=== PATIENT | male | born 1945 | race African-American/Black ===

== ENCOUNTER 2017-03-01 02:05 | Inpatient (IN) | payer MEDICARE ==
[2017-03-01] MEDS ORDERED: Nitroglycerin 2% Ointment 1 INCH/1 GM Packet ONE (02:55)
[2017-03-01] MEDS ORDERED: Nitroglycerin 0.4 MG TAB (25 Tab Bottle) ONE (02:55)
[2017-03-01 03:01] LABS: ALT (SGPT) 10 U/L (8-55); AST (SGOT) 12 U/L (5-34); Alkaline Phosphatase 74 U/L (40-150); Anion Gap 9 mmol/L (10-20); BUN (Urea Nitrogen) 8 mg/dL (8.4-25.7); Bilirubin, Total 0.6 mg/dL (0.2-1.2); CK (CPK) 63 U/L (30-200); Calc. Creatinine Clearance 0 mL/min (70-130); Calcium 9.6 mg/dL (7.8-10.44); Carbon Dioxide 28 mmol/L (23-31); Chloride 104 mmol/L (98-107); Estimated GFR-MDRD 89; Globulin 3.5 g/dL (2.4-3.5); Lipase 11 U/L (8-78); Protein, Total 7.9 g/dL (5.8-8.1)
[2017-03-01 03:03] LABS: Troponin I Less than 0.010 ng/mL (< 0.028)
[2017-03-01 03:09] LABS: #Basophils 0.1 thou/uL (0.0-0.2); #Eosinphils 0.2 thou/uL (0.0-0.7); #Lymphocytes 1.9 thou/uL (1.20-3.40); #Monocytes 0.6 thou/uL (0.11-0.59); #Neutrophils 3.8 thou/uL (1.40-6.50); %Basophils 1.4 % (0.0-1.0); %Eosinophils 2.8 % (0.0-10.0); %Lymphocytes 28.8 % (21.0-51.0); %Monocytes 9.5 % (0.0-10.0); Hematocrit 48.5 % (42.0-52.0); Mean Platelet Volume 7.5 fL (7.4-10.4); Red Blood Cell (RBC) Count 5.15 mill/uL (4.70-6.10); White Blood Cell (WBC) Count 6.5 thou/uL (4.8-10.8)
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
[2017-03-01] MEDS ORDERED: Ondansetron ODT 4 MG TAB PO PRN (06:52)
[2017-03-01] MEDS ORDERED: Nitroglycerin 0.4 MG TAB (25 Tab Bottle) PO PRN (06:52)
[2017-03-01] MEDS ORDERED: Guaifenesin DM 100-10/5 ML UDCUP PO PRN (06:52)
[2017-03-01] MEDS ORDERED: Acetaminophen 325 MG TAB PO PRN (06:52)
[2017-03-01 06:56] LABS: Troponin I Less than 0.010 ng/mL (< 0.028)
[2017-03-01 07:05] VITALS: BMI 27.5
--- NOTE | 2017-03-01 08:17 | CT ---
PRELIMINARY REPORT/[facility]/EMERGENCY AFTER HOURS PROCEDURE: EXAM: CT Angiography Chest With Intravenous Contrast CLINICAL HISTORY: 71 years old, male; Pain; Chest pain; Type not specified; Patient HX: R/O pe TECHNIQUE: Axial computed tomographic angiography images of the chest with intravenous contrast using pulmonary embolism protocol. CONTRAST: 100 mL of ISOVUE administered intravenously. COMPARISON: No relevant prior studies available. FINDINGS: No definite filling defect to suggest the diagnosis of acute pulmonary embolus. There is less than optimal opacification of the pulmonary arteries. This decreases sensitivity, riky cially in segmental and subsegmental/peripheral vessels. Segmental and subsegmental/peripheral vessels are less than optimally evaluated/visualized in this p atient. No evidence of thoracic aortic dissection or focal aneurysm. Mild to moderate thoracic aortic tortuosity and ectasia. Small amount of coronary artery calcification visible in the LAD. Small amount of pericardial fluid, significance uncertain. No significant hilar or mediastinal lymphadenopathy. No evidence for pneumomediastinum or pneumothorax. Right lung: Small calcified granuloma in the anterior/medial right middle lobe. No other significant parenchymal opacity or mass. No pleural fluid. Left lung: No significant parenchymal opacity or mass. No pleural fluid. Possible small hiatal hernia. Images that include the upper abdomen otherwise appear essentially unremarkable for age. IMPRESSION: No definite evidence of acute pulmonary embolus, see above. No evidence of thoracic aortic dissection or focal aneurysm. Small amount of coronary artery calcification visible in the LAD. Small pericardial effusion. Essentially clear lungs, no pleural fluid. Other details/findings discussed above. Thank you for allowing us to participate in the care of your patient. Dictated and Authenticated by: Anthony Wick MD 03/01/2017 6:01 AM Central Time ([place] \[place]\ [place]) FINAL REPORT EXAM: CT ANGIOGRAM OF THE CHEST: HISTORY: Chest pain x 2 hours. COMPARISON: None. TECHNIQUE: CT angiogram of the chest was performed in the axial plane. Coronal and bilateral oblique 3-dimensi onal reformatted images are submitted for interpretation. FINDINGS: This report is in agreement with the preliminary report by [facility]. No evidence of pulmonary artery emb olism to the level of the segmental arteries. POS: [facility]
--- NOTE | 2017-03-01 08:31 | RAD ---
PORTABLE AP CHEST: Date: 03-01-17 History: Chest pain. Comparison: 03-29-16 FINDINGS: Cardiac silhouette and pulmonary vasculature are within normal limits for portable technique of the study. The lungs are clear. There is mild elevation of the right hemidiaphragm. Degenerative changes are present in the spine. There has been no interval change from prior study. IMPRESSION: No acute cardiopulmonary process. POS: [facility]
[2017-03-01 08:57] LABS: Magnesium 1.9 mg/dL (1.6-2.6); Phosphorus 3.3 mg/dL (2.3-4.7)
[2017-03-01 09:00] LABS: Troponin I Less than 0.010 ng/mL (< 0.028)
[2017-03-01] MEDS ORDERED: Famotidine 20 MG TAB PO SCH (09:00)
[2017-03-01] MEDS ORDERED: ADENOSINE 60 MG/20 ML VIAL ONE (13:21)
[2017-03-01] MEDS ORDERED: ISOVUE-370 76%-LOCM 1 ML ONE (13:26)
[2017-03-01 15:49] VITALS: TEMP 98.2
[2017-03-01 16:07] VITALS: BP 177/82
--- NOTE | 2017-03-01 16:21 | NM ---
EXAM: NUCLEAR MEDICINE CARDIAC STRESS WITH EF AND WALL MOTION 03/01/17 HISTORY: Chest pain. COMPARISON: 11/24/14. TECHNIQUE: Patient administered 9.4 millicuries of technetium 99m Sestamibi for rest imaging and 29.7 millicuri es of technetium 99m Sestamibi for stress imaging. Cardiac gating is performed. FINDINGS: Homogeneous distribution of the radiotracer. No reversibility or fixed defect. TID is 1.09. End diastolic volume is 79 mL. End systolic volume is 18 mL. CARDIAC GATING: Normal motion and thickening. Ejection fraction is 77%. IMPRESSION: 1. Reversibility. No fixed defect. 2. 77% ejection fraction. POS: [facility]
[2017-03-01] MEDS ORDERED: FLU VACC TS2017-18 (>65YR) 0.5 ML SYRINGE IM ONE (21:00)
[2017-03-02] MEDS ORDERED: Lisinopril/Hydrochlorothiazide 10 mg/12.5 mg Tablet PO SCH (09:00)
--- NOTE | 2017-03-02 11:21 | DIS-2 ---
DATE OF ADMISSION: 03/01/2017 DISCHARGE DATE: 03/01/2017 ADMITTING RESIDENT: Cedric Prajapati MD ADMITTING ATTENDING: Alon Mccray M.D. DISCHARGE RESIDENT: Dr. Adrianna Cronin DISCHARGE ATTENDING: Dr. Mccray. CONSULTS: None. PROCEDURES: Stress test which showed 77% ejection fraction. No fixed defect reversibility. Normal motion and thickening. DISCHARGE MEDICATIONS: 1. Lisinopril/hydrochlorothiazide 1 tab orally daily. 2. Atorvastatin 40 mg oral daily. PRIMARY DIAGNOSIS: Atypical chest pain. SECONDARY DIAGNOSES: 1. Hypertension. 2. Hyperlipidemia. HISTORY OF PRESENT ILLNESS/HOSPITAL COURSE: 1. A 71-year-old male who presents to the ED complaining of chest pain and cough. states that he was coughing a lot earlier in the evening and he has been having trouble breathing. The patient said the pain is worse with coughing. He said the pain does not radiate anywhere, he said nothing makes it better. Denies diaphoresis, nausea, vomiting or diarrhea. Denies any recent illness. The patient has a past medical history of hypertension, CAD with an [place], possibly 15 years ago, but his did not know details about that. The patient said he was taking lisinopril/HCTZ in the outpati ent setting. All other review of systems were negative. The patient's vitals were within normal li mits on admission; other than his blood pressure was elevated at 179/87. Patient's exam was relativ mellisa within normal limits. The patient's labs were his CBC normal and his CMP was also normal. The patient's troponins were less than 0.01. His lipase was 11. D-dimer was 20. His EKG showed a norm al sinus rhythm. The patient was admitted for atypical chest pain. His troponins were trended, whi ch were all negative; and as mentioned before, his EKG showed normal sinus rhythm. The patient's D- dimer was elevated and a CT of the chest was ordered which was negative for PE. The patient was mad e n.p.o. and completed a stress test the next morning, which showed a normal ejection fraction and n o signs of coronary artery disease significant enough to cause blockage resulting in chest pain. Ac tually, today the patient was discharged home later that day after receiving the results of the stre ss test. 2. Hypertension: The patient came in hypertensive. His home medications of lisinopril and HCTZ we re continued. The patient was discharged on the same medication. 3. Hyperlipidemia. The patient's ASCVD risk was calculated to be greater than 30%. The patient wa s started on atorvastatin 40 as the patient's liver enzymes were normal. 4. Right mild cognitive decline. The patient a mini mental status exam was completed in the hospit al setting and patient scored a 22/30 which puts him in the mild cognitive decline category. Recomm ended to follow up with his primary care provider for further outpatient workup. DISPOSITION: Stable. LOCATION: Home. ACTIVITY: As tolerated. Diet: Heart healthy. FOLLOW UP. It was recommended that the patient follow up with his primary care physician in outpati ent setting for further workup.
== END 2017-03-01 19:48 | disposition home or self-care (01) | DRG 313 ==
LOC: ERS 02:05 → 2NO 03:00
PROVIDERS: ADMIT Student in an Organized Health Care Education/Training Program; ATTEND Student in an Organized Health Care Education/Training Program
PROC: 4A02XM4 Measurement of Cardiac Total Activity, External Approach (ICD-10-PCS; principal; 2017-03-01)
DX: R07.89 Other chest pain (principal); I25.2 Old myocardial infarction; J20.9 Acute bronchitis, unspecified; R41.81 Age-related cognitive decline; I10 Essential (primary) hypertension; E78.5 Hyperlipidemia, unspecified; N40.0 Benign prostatic hyperplasia without lower urinary tract symptoms
CPT/HCPCS: 36415; 71010; 71275; 78452; 80053; 80061; 82553; 83690; 83735; 84100; 84443; 84484; 85025; 85379; 93005; 93017; 94760; A4216; A9500; G8996-GN-CJ; G8997-GN-CJ; J0153

== ENCOUNTER 2020-08-18 14:48 | Inpatient (IN) | payer MEDICARE, OTHER ==
[2020-08-18 15:59] LABS: #Lymphocytes 2.2 thou/uL (1.20-3.40); #Neutrophils 7.6 thou/uL (1.40-6.50); %Basophils 0.3 % (0.0-1.0); %Eosinophils 0.4 % (0.0-10.0); %Lymphocytes 19.9 % (21.0-51.0); %Monocytes 9.3 % (0.0-10.0); %Neutrophils 70.2 % (42.0-75.0); Hemoglobin 13.7 g/dL (14.0-18.0); Mean Corpuscular Volume 93.5 fL (78.0-98.0); Platelet Count 301 thou/uL (130-400); RBC Distribution Width 12.9 % (11.5-14.5); Red Blood Cell (RBC) Count 4.58 mill/uL (4.70-6.10); White Blood Cell (WBC) Count 10.9 thou/uL (4.8-10.8)
[2020-08-18 16:19] LABS: Bilirubin Negative (Negative); Blood, Urine Negative (Negative); Clarity Turbid (Clear); Glucose, Urine (Dipstick) Normal (Negative); Ketone, Urine Negative (Negative); Leukocyte 250 Leu/uL (Negative); Nitrite Negative (Negative); Protein, Urine (Dipstick) 30 mg/dL (Neg-Trace); RBC/HPF 0-3 HPF (0-3); Specific Gravity, Urine 1.023 (1.002-1.036); Squamous Epithelial 0-3 HPF (0-3); Urobilinogen Normal mg/dL (Less than 2); pH, Urine 6.5 (5.0-9.0)
[2020-08-18 16:20] LABS: Bacteria/HPF Rare-Few HPF (None Seen)
[2020-08-18 16:25] LABS: AST (SGOT) 30 U/L (5-34); Albumin 3.1 g/dL (3.4-4.8); Anion Gap 16 mmol/L (10-20); BUN (Urea Nitrogen) 9 mg/dL (8.4-25.7); Bilirubin, Total 0.3 mg/dL (0.2-1.2); Calc. Creatinine Clearance 0 mL/min (70-130); Calcium 8.4 mg/dL (7.8-10.44); Carbon Dioxide 19 mmol/L (23-31); Chloride 103 mmol/L (98-107); Globulin 3.3 g/dL (2.4-3.5); Glucose 105 mg/dL (83-110); Potassium 3.8 mmol/L (3.5-5.1); Protein, Total 6.4 g/dL (5.8-8.1); Sodium 134 mmol/L (136-145)
[2020-08-18 16:41] LABS: Alkaline Phosphatase 63 U/L (40-110)
[2020-08-18 16:44] LABS: ALT (SGPT) 38 U/L (8-55)
[2020-08-18] MEDS ORDERED: cefTRIAXone\\ROCEPHIN 2 GM VIAL ONE (17:45)
[2020-08-18] MEDS ORDERED: Vancomycin 1 GM/200 ML BAG ONE ×2 (17:45→19:32)
[2020-08-18] MEDS ORDERED: Acetaminophen 650 MG Suppository PR PRN (18:29)
[2020-08-18] MEDS ORDERED: Acetaminophen 325 MG TAB PO PRN (18:29)
[2020-08-18] MEDS ORDERED: Bisacodyl 10 MG SUPP PR PRN (18:29)
[2020-08-18 20:01] LABS: Lactic Acid 3.2 mmol/L (0.5-2.2)
[2020-08-18] MEDS ORDERED: Sodium Chloride 0.9% 1,000 ML IV SCH (21:45)
[2020-08-18] MEDS ORDERED: Fleet Enema 133 ML BOT PR SCH (22:00)
[2020-08-18 22:17] LABS: Lactic Acid 1.9 mmol/L (0.5-2.2)
[2020-08-18 22:21] LABS: Albumin 3.2 g/dL (3.4-4.8); Anion Gap 11 mmol/L (10-20); BUN (Urea Nitrogen) 7 mg/dL (8.4-25.7); BUN/Creatinine Ratio 11.29; CK (CPK) 59 U/L (30-200); Calc. Creatinine Clearance 75 mL/min (70-130); Calcium 8.2 mg/dL (7.8-10.44); Carbon Dioxide 23 mmol/L (23-31); Chloride 102 mmol/L (98-107); Glucose 119 mg/dL (83-110); Potassium 4.1 mmol/L (3.5-5.1); Sodium 132 mmol/L (136-145)
[2020-08-18 22:49] LABS: Phosphorus 1.7 mg/dL (2.3-4.7)
[2020-08-18] MEDS: Dextrose 5 %-0.45 % NaCl 1,000 ML IV SCH (22:52)
[2020-08-18] MEDS ORDERED: Sodium Phosphate 30 MMOL in Sodium Chloride 0.9% 250 ML 250 ML IVPB SCH (23:45)
[2020-08-19] MEDS: Vancomycin HCl 750 MG in Sodium Chloride 0.9% 250 ML 250 ML IVPB SCH ×2 (05:37→16:32)
[2020-08-19 06:02] LABS: SARS-CoV-2 PCR by NAA Not Detected (NotDetected)
[2020-08-19 13:05] LABS: #Basophils 0.1 thou/uL (0.0-0.2); #Eosinphils 0.1 thou/uL (0.0-0.7); #Lymphocytes 2.3 thou/uL (1.20-3.40); #Monocytes 1.2 thou/uL (0.11-0.59); #Neutrophils 13.1 thou/uL (1.40-6.50); %Basophils 0.4 % (0.0-1.0); %Eosinophils 0.3 % (0.0-10.0); %Lymphocytes 13.7 % (21.0-51.0); %Neutrophils 78.6 % (42.0-75.0); Hemoglobin 13.2 g/dL (14.0-18.0); Mean Corpuscular HGB CONC 32.8 g/dL (32.0-36.0); Mean Corpuscular Hemoglobin 30.5 pg (27.0-31.0); Mean Corpuscular Volume 92.9 fL (78.0-98.0); Mean Platelet Volume 7.2 fL (7.4-10.4); Platelet Count 296 thou/uL (130-400); Red Blood Cell (RBC) Count 4.34 mill/uL (4.70-6.10); White Blood Cell (WBC) Count 16.7 thou/uL (4.8-10.8)
[2020-08-19 13:36] LABS: Anion Gap 13 mmol/L (10-20); BUN (Urea Nitrogen) 6 mg/dL (8.4-25.7); Calc. Creatinine Clearance 79 mL/min (70-130); Calcium 8.3 mg/dL (7.8-10.44); Carbon Dioxide 21 mmol/L (23-31); Chloride 105 mmol/L (98-107); Glucose 106 mg/dL (83-110); Potassium 4.1 mmol/L (3.5-5.1); Sodium 135 mmol/L (136-145)
[2020-08-19] MEDS: cefTRIAXone\\ROCEPHIN 1 GM in Sodium Chloride 0.9% 100 ML IVPB SCH (15:32)
[2020-08-19] MEDS: Dextrose 5 %-0.45 % NaCl 1,000 ML IV SCH (15:32)
[2020-08-20 06:42] LABS: #Basophils 0.1 thou/uL (0.0-0.2); #Eosinphils 0.1 thou/uL (0.0-0.7); #Monocytes 0.8 thou/uL (0.11-0.59); #Neutrophils 6.4 thou/uL (1.40-6.50); %Basophils 0.6 % (0.0-1.0); %Eosinophils 1.1 % (0.0-10.0); %Lymphocytes 21.4 % (21.0-51.0); %Monocytes 8.9 % (0.0-10.0); Hemoglobin 12.5 g/dL (14.0-18.0); Mean Corpuscular HGB CONC 32.4 g/dL (32.0-36.0); Mean Corpuscular Hemoglobin 30.3 pg (27.0-31.0); Mean Corpuscular Volume 93.6 fL (78.0-98.0); Mean Platelet Volume 8.5 fL (7.4-10.4); Platelet Count 243 thou/uL (130-400); Red Blood Cell (RBC) Count 4.13 mill/uL (4.70-6.10); White Blood Cell (WBC) Count 9.4 thou/uL (4.8-10.8)
[2020-08-20 06:55] LABS: Vancomycin, Trough 8.2 ug/mL
[2020-08-20] MEDS: Vancomycin HCl 750 MG in Sodium Chloride 0.9% 250 ML 250 ML IVPB SCH (07:00)
[2020-08-20] MEDS: Vancomycin 1 GM in Premix Bag 1 BAG IVPB SCH ×2 (07:04→18:31)
[2020-08-20] MEDS: Tamsulosin HCl 0.4 MG CAP PO SCH (08:49)
[2020-08-20] MEDS: Losartan 25 MG TAB PO SCH (08:49)
[2020-08-20] MEDS: Dextrose 5 %-0.45 % NaCl 1,000 ML IV SCH (13:44)
[2020-08-20] MEDS: cefTRIAXone\\ROCEPHIN 1 GM in Sodium Chloride 0.9% 100 ML IVPB SCH (16:34)
[2020-08-21] MEDS: Vancomycin 1 GM in Premix Bag 1 BAG IVPB SCH ×2 (06:23→18:28)
[2020-08-21 07:06] LABS: #Eosinphils 0.1 thou/uL (0.0-0.7); #Lymphocytes 2.5 thou/uL (1.20-3.40); #Monocytes 0.5 thou/uL (0.11-0.59); #Neutrophils 3.7 thou/uL (1.40-6.50); %Basophils 0.2 % (0.0-1.0); %Lymphocytes 36.4 % (21.0-51.0); %Monocytes 7.1 % (0.0-10.0); %Neutrophils 55.2 % (42.0-75.0); Hemoglobin 13.2 g/dL (14.0-18.0); Mean Corpuscular HGB CONC 32.8 g/dL (32.0-36.0); Mean Corpuscular Hemoglobin 30.7 pg (27.0-31.0); Mean Corpuscular Volume 93.4 fL (78.0-98.0); Mean Platelet Volume 8.8 fL (7.4-10.4); Platelet Count 210 thou/uL (130-400); RBC Distribution Width 13.1 % (11.5-14.5); Red Blood Cell (RBC) Count 4.31 mill/uL (4.70-6.10); White Blood Cell (WBC) Count 6.8 thou/uL (4.8-10.8)
[2020-08-21] MEDS: Losartan 25 MG TAB PO SCH (09:16)
[2020-08-21] MEDS: Tamsulosin HCl 0.4 MG CAP PO SCH (09:16)
[2020-08-21] MEDS: Dextrose 5 %-0.45 % NaCl 1,000 ML IV SCH (09:18)
[2020-08-21 13:43] VITALS: BMI 18.6
[2020-08-21] MEDS: cefTRIAXone\\ROCEPHIN 1 GM in Sodium Chloride 0.9% 100 ML IVPB SCH (16:38)
[2020-08-21 20:36] LABS: Vancomycin, Trough 34.5 ug/mL
[2020-08-22 05:35] LABS: #Basophils 0.1 thou/uL (0.0-0.2); #Eosinphils 0.1 thou/uL (0.0-0.7); #Lymphocytes 2.4 thou/uL (1.20-3.40); #Monocytes 0.5 thou/uL (0.11-0.59); #Neutrophils 3.4 thou/uL (1.40-6.50); %Basophils 1.1 % (0.0-1.0); %Lymphocytes 36.9 % (21.0-51.0); %Monocytes 8.1 % (0.0-10.0); %Neutrophils 52.8 % (42.0-75.0); Hemoglobin 13.6 g/dL (14.0-18.0); Mean Corpuscular HGB CONC 33.5 g/dL (32.0-36.0); Mean Corpuscular Volume 92.6 fL (78.0-98.0); Mean Platelet Volume 7.5 fL (7.4-10.4); Platelet Count 303 thou/uL (130-400); RBC Distribution Width 12.9 % (11.5-14.5); Red Blood Cell (RBC) Count 4.37 mill/uL (4.70-6.10); White Blood Cell (WBC) Count 6.5 thou/uL (4.8-10.8)
[2020-08-22] MEDS ORDERED: Vancomycin 1 GM in Premix Bag 1 BAG IVPB SCH (06:00)
[2020-08-22] MEDS: Losartan 25 MG TAB PO SCH (08:47)
[2020-08-22] MEDS: Tamsulosin HCl 0.4 MG CAP PO SCH (08:48)
[2020-08-22 09:22] LABS: Albumin 3.4 g/dL (3.4-4.8); Anion Gap 16 mmol/L (10-20); BUN (Urea Nitrogen) 4 mg/dL (8.4-25.7); BUN/Creatinine Ratio 7.02; Calc. Creatinine Clearance 83 mL/min (70-130); Calcium 8.6 mg/dL (7.8-10.44); Carbon Dioxide 19 mmol/L (23-31); Chloride 105 mmol/L (98-107); Glucose 86 mg/dL (83-110); Phosphorus 2.8 mg/dL (2.3-4.7); Potassium 3.7 mmol/L (3.5-5.1); Sodium 136 mmol/L (136-145)
[2020-08-22] MEDS ORDERED: Dextrose 5 %-0.45 % NaCl 1,000 ML IV SCH (13:00)
[2020-08-22] MEDS: cefTRIAXone\\ROCEPHIN 1 GM in Sodium Chloride 0.9% 100 ML IVPB SCH (18:13)
[2020-08-22] MEDS: Senokot S 8.6-50 MG TAB PO SCH (20:21)
[2020-08-22] MEDS: predniSONE 50 MG TAB PO SCH (21:01)
[2020-08-23] MEDS: predniSONE 50 MG TAB PO SCH ×2 (02:19→08:10)
[2020-08-23 06:24] LABS: Albumin 3.1 g/dL (3.4-4.8); Anion Gap 13 mmol/L (10-20); BUN (Urea Nitrogen) 6 mg/dL (8.4-25.7); BUN/Creatinine Ratio 10.71; Calc. Creatinine Clearance 85 mL/min (70-130); Calcium 8.4 mg/dL (7.8-10.44); Carbon Dioxide 20 mmol/L (23-31); Chloride 105 mmol/L (98-107); Glucose 140 mg/dL (83-110); Potassium 3.7 mmol/L (3.5-5.1); Sodium 134 mmol/L (136-145)
[2020-08-23] MEDS ORDERED: diphenhydrAMINE 25 MG CAP PO SCH (08:00)
[2020-08-23] MEDS: Losartan 25 MG TAB PO SCH (08:09)
[2020-08-23] MEDS: Senokot S 8.6-50 MG TAB PO SCH ×3 (08:10→20:29)
[2020-08-23] MEDS: Tamsulosin HCl 0.4 MG CAP PO SCH (08:10)
[2020-08-23] MEDS ORDERED: Iopamidol-370 76% 500 ML 1 ML ONE (12:52)
[2020-08-23] MEDS: AMOXicillin 250 MG CAP PO SCH (20:29)
[2020-08-24 08:46] VITALS: BP 133/79; TEMP 97.9
[2020-08-24] MEDS: AMOXicillin 250 MG CAP PO SCH (09:16)
[2020-08-24] MEDS: Senokot S 8.6-50 MG TAB PO SCH (09:16)
[2020-08-24] MEDS: Losartan 25 MG TAB PO SCH (09:16)
[2020-08-24] MEDS: Tamsulosin HCl 0.4 MG CAP PO SCH (09:16)
== END 2020-08-24 13:55 | disposition home health service (06) | DRG 871 ==
LOC: ERS 14:48 → T4-B 17:27 → OBSVTOIN 08-19 17:08
PROVIDERS: ADMIT Internal Medicine; ATTEND Internal Medicine
DX: A41.89 Other specified sepsis (principal); R53.2 Functional quadriplegia; N39.0 Urinary tract infection, site not specified; E44.0 Moderate protein-calorie malnutrition; Z68.1 Body mass index [BMI] 19.9 or less, adult; E87.1 Hypo-osmolality and hyponatremia; E87.2 Acidosis; K56.41 Fecal impaction; R63.8 Other symptoms and signs concerning food and fluid intake; M19.90 Unspecified osteoarthritis, unspecified site; E83.39 Other disorders of phosphorus metabolism; I10 Essential (primary) hypertension; N28.1 Cyst of kidney, acquired; Z96.642 Presence of left artificial hip joint; Z96.651 Presence of right artificial knee joint; F03.90 Unspecified dementia, unspecified severity, without behavioral disturbance, psychotic disturbance, mood disturbance, and anxiety; N40.0 Benign prostatic hyperplasia without lower urinary tract symptoms; R65.20 Severe sepsis without septic shock; R13.12 Dysphagia, oropharyngeal phase; Z20.822 Contact with and (suspected) exposure to COVID-19; L89.010 Pressure ulcer of right elbow, unstageable; L89.320 Pressure ulcer of left buttock, unstageable; I25.10 Atherosclerotic heart disease of native coronary artery without angina pectoris; I69.30 Unspecified sequelae of cerebral infarction; I25.2 Old myocardial infarction; Z74.01 Bed confinement status; I69.365 Other paralytic syndrome following cerebral infarction, bilateral
CPT/HCPCS: 36415; 36416; 51701; 71046; 71275; 74018; 74176; 80048; 80053; 80069; 80202; 81003; 81015; 82550; 83605; 83735; 83880; 84484; 85025; 85379; 87040; 87086; 87635; 93005; 93010; 96365; 96366; 96367; G0378; J0696; J3370; J3490; J7050; J7512; Q0163; Q9967; U0003; U0005

== ENCOUNTER 2020-10-27 20:30 | Inpatient (IN) | payer MEDICARE, OTHER ==
[2020-10-27 21:36] LABS: Hemoglobin 13.4 g/dL (14.0-18.0); Mean Corpuscular HGB CONC 32.2 g/dL (32.0-36.0); Mean Corpuscular Hemoglobin 29.8 pg (27.0-31.0); Mean Corpuscular Volume 92.7 fL (78.0-98.0); Mean Platelet Volume 7.2 fL (7.4-10.4); Platelet Count 323 thou/uL (130-400); RBC Distribution Width 13.5 % (11.5-14.5); Red Blood Cell (RBC) Count 4.51 mill/uL (4.70-6.10); White Blood Cell (WBC) Count 16.2 thou/uL (4.8-10.8)
[2020-10-27] MEDS ORDERED: cefTRIAXone\\ROCEPHIN 2 GM VIAL ONE (21:36)
[2020-10-27 21:45] LABS: INR-International Normal Ratio 1.3; Prothrombin Time 15.8 sec (12.0-14.7)
[2020-10-27 21:47] LABS: PTT 28.6 sec (22.9-36.1)
[2020-10-27 21:53] LABS: ALT (SGPT) 52 U/L (8-55); AST (SGOT) 43 U/L (5-34); Albumin 3.3 g/dL (3.4-4.8); Alkaline Phosphatase 60 U/L (40-110); Anion Gap 16 mmol/L (10-20); BUN (Urea Nitrogen) 8 mg/dL (8.4-25.7); Bilirubin, Total 0.5 mg/dL (0.2-1.2); Calc. Creatinine Clearance 0 mL/min (70-130); Calcium 8.6 mg/dL (7.8-10.44); Carbon Dioxide 22 mmol/L (23-31); Chloride 99 mmol/L (98-107); Globulin 3.6 g/dL (2.4-3.5); Glucose 206 mg/dL (83-110); Protein, Total 6.9 g/dL (5.8-8.1); Sodium 133 mmol/L (136-145)
[2020-10-27 21:54] LABS: Lymphocytes 3 % (21-51); MDiff Complete? YES; Metamyelocyte 1 % (0-0); Monocytes 2 % (0-10); Neutrophil 94 % (42-75); Platelet Morphology Comment Appears Adequate
[2020-10-27] MEDS ORDERED: Vancomycin 1 GM/200 ML BAG ONE (22:27)
[2020-10-27 22:58] LABS: Bacteria/HPF 4+ HPF (None Seen); Bilirubin Negative (Negative); Blood, Urine 1+ (Negative); Clarity Turbid (Clear); Glucose, Urine (Dipstick) Normal (Negative); Ketone, Urine Negative (Negative); Leukocyte 500 Leu/uL (Negative); Mucous/LPF Rare LPF (<2+); Nitrite Negative (Negative); Protein, Urine (Dipstick) 30 mg/dL (Neg-Trace); Renal Epithelial 0-3 HPF (None Seen); Squamous Epithelial None Seen HPF (0-3); Urobilinogen Normal mg/dL (Less than 2); WBC/HPF 21-50 HPF (0-3); pH, Urine 6.5 (5.0-9.0)
[2020-10-28 00:27] LABS: Lactic Acid 1.8 mmol/L (0.5-2.2)
[2020-10-28] MEDS ORDERED: Acetaminophen 325 MG TAB PO PRN (05:51)
[2020-10-28] MEDS ORDERED: Ondansetron PF 4 MG/2 ML Vial IVP PRN (05:51)
[2020-10-28 07:34] LABS: Anion Gap 12 mmol/L (10-20); BUN (Urea Nitrogen) 6 mg/dL (8.4-25.7); Calc. Creatinine Clearance 0 mL/min (70-130); Calcium 8.5 mg/dL (7.8-10.44); Carbon Dioxide 24 mmol/L (23-31); Chloride 102 mmol/L (98-107); Glucose 108 mg/dL (83-110); Sodium 134 mmol/L (136-145)
[2020-10-28 07:44] LABS: Hemoglobin 13.4 g/dL (14.0-18.0); Mean Corpuscular HGB CONC 33.1 g/dL (32.0-36.0); Mean Corpuscular Hemoglobin 30.9 pg (27.0-31.0); Mean Corpuscular Volume 93.3 fL (78.0-98.0); Mean Platelet Volume 7.1 fL (7.4-10.4); Platelet Count 294 thou/uL (130-400); RBC Distribution Width 13.5 % (11.5-14.5); Red Blood Cell (RBC) Count 4.33 mill/uL (4.70-6.10); White Blood Cell (WBC) Count 21.1 thou/uL (4.8-10.8)
[2020-10-28 08:01] LABS: Band 3 % (5-11); Lymphocytes 13 % (21-51); MDiff Complete? YES; Monocytes 1 % (0-10); Neutrophil 83 % (42-75); Platelet Morphology Comment Appears Adequate; RBC Morphology Normal
[2020-10-28] MEDS: Piperacillin/Tazobactam 4.5 GM in Sodium Chloride 0.9% 100 ML IVPB SCH ×3 (09:00→21:48)
[2020-10-28 15:38] VITALS: BMI 17.9
[2020-10-28] MEDS ORDERED: Vancomycin 1 GM in Premix Bag 1 BAG IVPB SCH (23:00)
[2020-10-29] MEDS: Piperacillin/Tazobactam 4.5 GM in Sodium Chloride 0.9% 100 ML IVPB SCH (00:23)
[2020-10-29 06:06] LABS: #Eosinphils 0.1 thou/uL (0.0-0.7); #Lymphocytes 2.1 thou/uL (1.20-3.40); #Monocytes 0.7 thou/uL (0.11-0.59); #Neutrophils 6.7 thou/uL (1.40-6.50); %Basophils 0.4 % (0.0-1.0); %Eosinophils 1.5 % (0.0-10.0); %Monocytes 7.2 % (0.0-10.0); %Neutrophils 68.9 % (42.0-75.0); Hemoglobin 12.4 g/dL (14.0-18.0); Mean Corpuscular HGB CONC 32.1 g/dL (32.0-36.0); Mean Corpuscular Volume 93.6 fL (78.0-98.0); Mean Platelet Volume 7.7 fL (7.4-10.4); Platelet Count 289 thou/uL (130-400); RBC Distribution Width 13.4 % (11.5-14.5); Red Blood Cell (RBC) Count 4.12 mill/uL (4.70-6.10); White Blood Cell (WBC) Count 9.7 thou/uL (4.8-10.8)
[2020-10-29 06:28] LABS: ALT (SGPT) 63 U/L (8-55); AST (SGOT) 42 U/L (5-34); Albumin 3.1 g/dL (3.4-4.8); Alkaline Phosphatase 54 U/L (40-110); Anion Gap 11 mmol/L (10-20); BUN (Urea Nitrogen) 6 mg/dL (8.4-25.7); Bilirubin, Total 0.6 mg/dL (0.2-1.2); Calc. Creatinine Clearance 73 mL/min (70-130); Calcium 8.9 mg/dL (7.8-10.44); Carbon Dioxide 25 mmol/L (23-31); Chloride 104 mmol/L (98-107); Globulin 3.3 g/dL (2.4-3.5); Glucose 78 mg/dL (83-110); Protein, Total 6.4 g/dL (5.8-8.1); Sodium 136 mmol/L (136-145)
[2020-10-29] MEDS: cefTRIAXone\\ROCEPHIN 1 GM in Sodium Chloride 0.9% 100 ML IVPB SCH (09:06)
[2020-10-29] MEDS: Losartan 25 MG TAB PO SCH (11:36)
[2020-10-29] MEDS: Tamsulosin HCl 0.4 MG CAP PO SCH (11:36)
[2020-10-30 06:08] LABS: #Basophils 0.1 thou/uL (0.0-0.2); #Eosinphils 0.1 thou/uL (0.0-0.7); #Lymphocytes 2.3 thou/uL (1.20-3.40); #Monocytes 0.6 thou/uL (0.11-0.59); #Neutrophils 4.7 thou/uL (1.40-6.50); %Basophils 0.9 % (0.0-1.0); %Eosinophils 1.1 % (0.0-10.0); %Lymphocytes 29.5 % (21.0-51.0); %Monocytes 7.3 % (0.0-10.0); %Neutrophils 61.1 % (42.0-75.0); Hemoglobin 13.7 g/dL (14.0-18.0); Mean Corpuscular HGB CONC 31.2 g/dL (32.0-36.0); Mean Corpuscular Hemoglobin 28.9 pg (27.0-31.0); Mean Corpuscular Volume 92.7 fL (78.0-98.0); Platelet Count 331 thou/uL (130-400); RBC Distribution Width 13.4 % (11.5-14.5); Red Blood Cell (RBC) Count 4.75 mill/uL (4.70-6.10); White Blood Cell (WBC) Count 7.7 thou/uL (4.8-10.8)
[2020-10-30 06:31] LABS: Anion Gap 10 mmol/L (10-20); BUN (Urea Nitrogen) 6 mg/dL (8.4-25.7); Calc. Creatinine Clearance 78 mL/min (70-130); Calcium 8.8 mg/dL (7.8-10.44); Carbon Dioxide 23 mmol/L (23-31); Chloride 103 mmol/L (98-107); Glucose 81 mg/dL (83-110); Potassium 3.9 mmol/L (3.5-5.1); Sodium 132 mmol/L (136-145)
[2020-10-30] MEDS: Tamsulosin HCl 0.4 MG CAP PO SCH (08:33)
[2020-10-30] MEDS: cefTRIAXone\\ROCEPHIN 1 GM in Sodium Chloride 0.9% 100 ML IVPB SCH (08:33)
[2020-10-30] MEDS: Losartan 25 MG TAB PO SCH (08:33)
[2020-10-30 12:24] VITALS: BP 140/82; TEMP 97.6
== END 2020-10-30 15:42 | disposition hospice, home (50) | DRG 872 ==
LOC: ERS 20:30 → ERHOLD 23:17 → 2NO 10-28 15:09 → SURG B 10-29 12:32
PROVIDERS: ADMIT Internal Medicine; ATTEND Internal Medicine
DX: A41.51 Sepsis due to Escherichia coli [E. coli] (principal); K62.6 Ulcer of anus and rectum; Z66 Do not resuscitate; N39.0 Urinary tract infection, site not specified; R65.20 Severe sepsis without septic shock; M19.90 Unspecified osteoarthritis, unspecified site; I10 Essential (primary) hypertension; F03.90 Unspecified dementia, unspecified severity, without behavioral disturbance, psychotic disturbance, mood disturbance, and anxiety; Z96.642 Presence of left artificial hip joint; Z96.651 Presence of right artificial knee joint; L98.429 Non-pressure chronic ulcer of back with unspecified severity; N40.0 Benign prostatic hyperplasia without lower urinary tract symptoms; K59.09 Other constipation; R13.10 Dysphagia, unspecified; Z86.73 Personal history of transient ischemic attack (TIA), and cerebral infarction without residual deficits; Z88.8 Allergy status to other drugs, medicaments and biological substances; Z79.899 Other long term (current) drug therapy; Z74.01 Bed confinement status
CPT/HCPCS: 36415; 51701; 71045; 80048; 80053; 81003; 81015; 83605; 85025; 85610; 85730; 87040; 87077; 87086; 87186; 93005; 94760; 96365; J0696; J2543; J3370; J3490